=== PATIENT | male | born 1965 | race Caucasian/White ===

== ENCOUNTER 2017-02-05 15:47 | Observation (INO) | payer OTHER ==
[2017-02-05] VITALS (15 sets, daily range): BP systolic 142–203; BP diastolic 79–113; PULSE 66–79; TEMP 98–98.9
[~2017-02-05] VITALS: Ht 180.3 cm; Wt 75.3 kg
== END 2017-02-05 21:06 | disposition home or self-care (01) ==
LOC: SURG 15:47
DX: N20.1 Calculus of ureter (principal); I10 Essential (primary) hypertension; F17.210 Nicotine dependence, cigarettes, uncomplicated; Z91.14 Patient's other noncompliance with medication regimen; M54.32 Sciatica, left side
CPT/HCPCS: 99222; C1769; C2617; G0378; G0379; J0690; J1100; J1170; J1885; J2405; J2550; J2704; J3010; J7120; Q9967